=== PATIENT | female | born 1990 | race Hispanic/Latino ===

== ENCOUNTER 2022-09-28 11:10 | Inpatient (IN) | payer OTHER ==
--- OUTSIDE RECORDS SUMMARY | 2022-09-28 11:16 | XMS REPORT | Continuity of Care Document ---
:1990 Author Organization [facility] t Address [address] [place] [address] [place] [address] Care Team Providers Name Role Phone Pcp, Patient Does Not Have A Primary Care Physician [phone] SKYLER SINGER Attending Clinician Unavailable MILA SOLORIO Attending Clinician Unavailable Mila Solorio MD Attending Clinician Doctor Unassigned, [place] Attending Clinician Unavailable Pcp, Patient Does Not Have A Attending Clinician [phone] CATHERINE KEITA Attending Clinician Unavailable Catherine Keita MD Attending Clinician Amairani Devries Attending Clinician Rajinder Palomares Attending Clinician SKYLER SINGER Admitting Clinician Unavailable CATHERINE KEITA Admitting Clinician Unavailable Rajinder Palomares Admitting Clinician Payers Payer Name Policy Type Policy Number Effective Date Expiration Date [facility] [id number] 2021 HEALTH CHOICE 00:00:00 [facility] [id number] 2016 [facility] Choice - 00:00:00 [facility] [id number] 2016 [facility] Choice - 00:00:00 [facility] [id number] 2016 [facility] Choice - 00:00:00 [facility] Problems Condition Condition Condition Status Onset Resolution Last Treating Co mments Source Name Details Category Date Date Treatment Clinician Date Morbid Morbid Disease Active Univers obesity obesity 1-27 [place] of with body [place] index mass index 00 [place] dical of of Branch 40.0-49.9 40.0-49.9 PAIN IN PAIN IN Diagnosis Active 2012-082013-09-18 Memoria UNDERARM UNDERARM 09-01 13:04:00 l Active 00:00: [place] 07/02/2013 00 [facility] UMBILICAL UMBILICAL Diagnosis Active 2016-09-30 Memoria HERNIA HERNIA 08:16:00 l WITHOUT WITHOUT De[place] OBSTRUCTIO OBSTRUCTIO N OR N OR GANGRENE GANGRENE Active [facility] Calculus Calculus Problem Active 2021-06-12 Memoria in biliary in biliary 22:24:03 l tract tract [place] (disorder) (disorder) Active Problem 06/12/[facility] Gastritis Gastritis Problem Active 2021-06-12 Memoria caused by caused by 22:24:03 l Helicobact Helicobact He rmann er pylori er pylori (disorder) (disorder) Active Problem 06/12/2021 [facility] Steatosis Steatosis Problem Active 2021-06-12 Memoria of liver of liver 22:24:03 l (disorder) (disorder) He rmann Active Problem 06/12/2021 [facility] [id number] Cystitis Problem Active Sprin g [facility] Dysuria Dysuria Problem Active [facility] [id number] Alopecia Problem Active Sprin g [facility] [id number] Tension Problem Active Sprin g headache [facility] [id number] Problem Active Spr ing test Branch negative [facility] Allergies, Adverse Reactions, Alerts Allergy Allergy Status Severity Reaction(s) Onset Inactive Treating Comm ents Source Name Type Date Date Clinician No Known DA Active U [facility] Allergie 04-04 [place] [facility] 00:00: Health 00 are Beggs NO KNOWN Drug Active Univers ALLERGIE Class ity of [facility] [place] [facility] [place] Social History Social Habit Start Date Stop Date Quantity Comments Source ASSERTION 2022-01-11 [facility] 00:00:00 [facility] History of Never Smoker [facility] Tobacco Use [facility] Sex Assigned At [facility] Exposure to 2022-09-15 2022-09-25 Not sure [facility] [place] [facility]-CoV-2 00:00:00 09:25:00 [facility] (event) [place] Tobacco use and 2022-09-25 2022-09-25 Smokeless tobacco Un iversity of exposure 00:00:00 00:00:00 non-user [facility] Alcohol intake 2022-09-25 2022-09-25 Ex-drinker [facility] 00:00:00 00:00:00 (finding) [facility] Social History 2021-06-06 2021-06-06 [facility] 14:53:37 14:53:37 Smoking Status Start Date Stop Date Source Tobacco smoking consumption [facility] Never smoked tobacco [facility] Medications Ordered Filled Start Stop Current Ordering Indication Dosage Frequency Signature Comments Components Source Medication Medication Date Date Medication? Clinician (SIG) Name Name VITAFOL Yes 1{capsu Take 1 Unive rs ULTRA 29 mg 1-08 le} capsule by it y of iron- 1 00:00: mouth [place] mg-200 mg 00 daily. Medical [facility] VITAFOL Yes 1{capsu Take 1 Unive rs ULTRA 29 mg 1-08 le} capsule by it y of iron- 1 00:00: mouth [place] mg-200 mg 00 daily. Medical [facility] azithromyci Yes [id number] 250mg Take 1 Univers n 5-23 tablet by ity of (ZITHROMAX 00:00: mouth [place] Z-REAGAN) 250 00 SEE-INSTRU Med ical mg tablet CTIONS. Branch Take 500 mg day 1, then 250 mg days 2 to 5. methylPREDN Yes [id number] Take by Univers ISolone 4 5-23 mouth ity of mg tablets 00:00: [place]-INSTRU [place] 00 CTIONS. Medical follow Branch package directions montelukast 2022-0 Yes [id number] 10mg Take 1 Univers 10 mg 5-23 tablet by ity of tablet 00:00: mouth [place] 00 every 24 Medical (twenty-fo Branch ur) hours as needed (symptoms) . loratadine 2021-0 Yes [id number] 10mg Take 1 U nivers 10 mg 5-23 tablet by ity of tablet 00:00: mouth [place] 00 daily. Medical Branch benzonatate 2021-0 Yes [id number] 100mg Take 1 Univers 100 mg 5-23 capsule by ity of capsule 00:00: mouth 3 [place] 00 (three) Medical times Branch daily as needed for Cough. azithromyci 2021-0 Yes [id number] 250mg Take 1 Univers n 5-23 tablet by ity of (ZITHROMAX 00:00: mouth [place] Z-REAGAN) 250 00 SEE-INSTRU Med ical mg tablet CTIONS. Branch Take 500 mg day 1, then 250 mg days 2 to 5. methylPREDN 2021-0 Yes [id number] Take by Univers ISolone 4 01-19 mouth ity of mg tablets 00:00: SEE-INSTRU [place] CTIONS. Medical follow Branch package directions montelukast 2021-0 Yes [id number] 10mg Take 1 Univers 10 mg 5-23 tablet by ity of tablet 00:00: mouth [place] 00 every 24 Medical (twenty-fo Branch ur) hours as needed (symptoms) . loratadine 2021-0 Yes [id number] 10mg Take 1 U nivers 10 mg 5-23 tablet by ity of tablet 00:00: mouth [place] 00 daily. Medical Branch benzonatate 2021-0 Yes [id number] 100mg Take 1 Univers 100 mg 5-23 capsule by ity of capsule 00:00: mouth 3 [place] 00 (three) Medical times Branch daily as needed for Cough. azithromyci 2021-0 2022- No [id number] 250mg Take 1 Univers n 5-23 - tablet by ity of (ZITHROMAX 00:00: 00:00 mouth [place] Z-REAGAN) 250 00 :00 SEE-INSTRU Med ical mg tablet CTIONS. Branch Take 500 mg day 1, then 250 mg days 2 to 5. methylPREDN 2021-0 2022- No [id number] Take by Univers ISolone 4 5-23 09-27 mouth ity of mg tablets 00:00: 00:00 SEE-INSTRU [place] 00 :00 CTIONS. Medical follow Branch package directions montelukast 2022- No [id number] 10mg Take 1 Univers 10 mg 5-09-27 tablet by ity of tablet 00:00: 00:00 mouth [place] 00 :00 every 24 Medical (twenty-fo Branch ur) hours as needed (symptoms) . loratadine 2022- No [id number] 10mg Take 1 Univers 10 mg 5-09-27 tablet by ity of tablet 00:00: 00:00 mouth [place] 00 :00 daily. Medical Branch benzonatate 2022- No [id number] 100mg Take 1 Univers 100 mg 5-09-27 capsule by ity of capsule 00:00: 00:00 mouth 3 [place] 00 :00 (three) Medical times Branch daily as needed for Cough. Famotidine 2020-08 Yes 20 mg = 1 Me moria 20 MG Oral 0-08 tab, PO, l Tablet 15:37: BID, # 180 Mary nn [Pepcid] 00 tab, 0 Refill(s), Pharmacy: [facility] #[id number], 157.48, cm, 06/06/21 10:14:00 CDT, Height, 81.023, kg, 06/06/21 10:14:00 CDT, Weight Famotidine 2020-08 Yes 20 mg = 1 Me moria 20 MG Oral 0-08 tab, PO, l Tablet 15:37: BID, # 180 Mary nn [Pepcid] 00 tab, 0 Refill(s), Pharmacy: [facility] #[id number], 157.48, cm, 06/06/21 10:14:00 CDT, Height, 81.023, kg, 06/06/21 10:14:00 CDT, Weight Flagyl 500 Flagyl 500 No 1{table BID Flagyl 500 MG MG 1-09 t} MG 00:00: 00 Flagyl 500 Flagyl 500 No 1{table BID Flagyl 500 MG MG 1-09 t} MG 00:00: 00 Flagyl 500 Flagyl 500 2018- No 1{table BID Flagyl 500 MG MG 1-09 t} MG 00:00: 00 Phenergan No Notes: Do Mem oria 2- not give l 18:30: IV push. (Same as: Phenergan) Phenergan No Notes: Do Mem oria 2- not give l 18:30: IV push. (Same as: Phenergan) glycopyrrol No Route: IV, Memoria ate (ANES) 2 Drug form: l 18:01: INJ, ONCE, Stop date: 09/30/16 12:01:00 MAT GAUGER neostigmine 2016- No Route: IV, Memoria (ANES) 2 Drug form: l 18:01: INJ, ONCE, Stop date: 09/30/16 12:01:00 MAT GAUGER ondansetron No Route: IV, Memoria (ANES) 09-30 Drug form: l 18:01: INJ, ONCE, Stop date: 09/30/16 12:01:00 MAT GAUGER glycopyrrol No Route: IV, Memoria ate (ANES) 09-30 Drug form: l 18:01: INJ, ONCE, Stop date: 09/30/16 12:01:00 MAT GAUGER neostigmine No Route: IV, Memoria (ANES) 2 Drug form: l 18:01: INJ, ONCE, Stop date: 09/30/16 12:01:00 MAT GAUGER ondansetron No Route: IV, Memoria (ANES) 2 Drug form: l 18:01: INJ, ONCE, Stop date: 09/30/16 12:01:00 MAT GAUGER POLYETHYLEN 2016- Yes 17 gm, PO, Memoria E GLYCOL 2-01 Daily, X l [id number] 17:54: 15 day, # [place] MG/ML Oral 00 255 gm, 0 Solution Refill(s) [Miralax] POLYETHYLEN 2017-0 Yes 17 gm, PO, Memoria E GLYCOL 2-01 Daily, X l [id number] 142 17:54: 15 day, # [place] MG/ML Oral 00 255 gm, 0 Solution Refill(s) [Miralax] morphine No Route: IV, Mem oria Sulfate 2 Drug form: l (ANES) 17:39: INJ, ONCE, Mary nn Stop date: 09/30/16 11:39:00 MAT GAUGER morphine 2017-0 No Route: IV, Mem oria Sulfate 09-30 Drug form: l (ANES) 17:39: INJ, ONCE, Mary nn Stop date: 09/30/16 11:39:00 MAT GAUGER dexamethaso 2017-0 No Route: IV, Memoria ne (ANES) 2 Drug form: l 17:19: INJ, ONCE, Dere[place] 00 Stop date: 09/30/16 11:19:00 MAT GAUGER dexamethaso 2016-0 No Route: IV, Memoria ne (ANES) 2 Drug form: l 17:19: INJ, ONCE, [place] 00 Stop date: 09/30/16 11:19:00 MAT GAUGER ceFAZolin 2016-0 No Route: IV, Me moria (ANES) 09-30 Drug form: l 17:14: INJ, ONCE, Stop date: 09/30/16 11:14:00 MAT GAUGER acetaminoph 2016-0 No Route: IV, Memoria en (ANES) 09-30 Drug form: l 17:14: INJ, ONCE, Stop date: 09/30/16 11:14:00 MAT GAUGER rocuronium 2016-0 No Route: IV, M emoria (ANES) 09-30 Drug form: l 17:14: INJ, ONCE, Stop date: 09/30/16 11:14:00 MAT GAUGER propofol 2017-0 No Route: IV, Mem oria (ANES) 2 Drug form: l 17:14: INJ, ONCE, Stop date: 09/30/16 11:14:00 MAT GAUGER fentaNYL 2017-0 No Route: IV, Mem oria (ANES) 2 Drug form: l 17:14: INJ, ONCE, Stop date: 09/30/16 11:14:00 MAT GAUGER midazolam 2017-0 No Route: IV, Me moria (ANES) 2 Drug form: l 17:14: SOLN, Dereje 00 ONCE, Stop date: 09/30/16 11:14:00 MAT GAUGER ceFAZolin 2017-0 No Route: IV, Me moria (ANES) 2 Drug form: l 17:14: INJ, ONCE, Stop date: 09/30/16 11:14:00 MAT GAUGER acetaminoph No Route: IV, Memoria en (ANES) 09-30 Drug form: l 17:14: INJ, ONCE, Dere[place] 00 Stop date: 09/30/16 11:14:00 MAT GAUGER rocuronium No Route: IV, M emoria (ANES) 09-30 Drug form: l 17:14: INJ, ONCE, Stop date: 09/30/16 11:14:00 MAT GAUGER propofol No Route: IV, Mem oria (ANES) 09-30 Drug form: l 17:14: INJ, ONCE, Stop date: 09/30/16 11:14:00 MAT GAUGER fentaNYL No Route: IV, Mem oria (ANES) 09-30 Drug form: l 17:14: INJ, ONCE, Stop date: 09/30/16 11:14:00 MAT GAUGER midazolam No Route: IV, Me moria (ANES) 09-30 Drug form: l 17:14: SOLN, 00 ONCE, Stop date: 09/30/16 11:14:00 MAT GAUGER Flumazenil No Notes: Memor ia 09-30 (Same as: l 16:43: Romazicon) Diphenhydra No Notes: Maykel kathia mine 09-30 (Same as: l 16:43: Benadryl) Hydromorpho No Notes: Maykel kathia ne 09-30 Same as l 16:43: Dilaudid Morphine No 2 mg, 1 Memori a 2-01 mL, Route: l 16:43: IVP, Drug form: SOLN, Q5Min, Dosing Weight 59.091, kg, PRN Pain Score 4-6, Start date: 09/30/16 10:43:00 MAT GAUGER, Duration: 5 doses or times, Stop date: Limited # of times Naloxone No Notes: Memoria 2 Same as l 16:43: Narcan Ondansetron No Notes: Maykel kathia 2- (Same as: l 16:43: Zofran) MEDICATION WASTE Product Size: 4 mg Product Wasted: _0__ mg Flumazenil No Notes: Memor ia 09-30 (Same as: l 16:43: Romazicon) Diphenhydra No Notes: Maykel kathia mine 09-30 (Same as: l 16:43: Benadryl) Hydromorpho No Notes: Maykel katiha ne 09-30 Same as l 16:43: Dilaudid Morphine No 2 mg, 1 Memori a 2- mL, Route: l 16:43: IVP, Drug form: SOLN, Q5Min, Dosing Weight 59.091, kg, PRN Pain Score 4-6, Start date: 09/30/16 10:43:00 MAT GAUGER, Duration: 5 doses or times, Stop date: Limited # of times Naloxone No Notes: Memoria 09-30 Same as l 16:43: Narcan Ondansetron No Notes: Maykel kathia 09-30 (Same as: l 16:43: Zofran) MEDICATION WASTE Product Size: 4 mg Product Wasted: _0__ mg LR 1000 mL No Route: IV, M emoria INJ (ANES) 09-30 Total l 16:20: Volume: Dereje 00 1,000, Start date: 09/30/16 10:20:00 MAT GAUGER, Stop date: 09/30/16 11:20:00 MAT GAUGER LR 1000 mL No Route: IV, M emoria INJ (ANES) 09-30 Total l 16:20: Volume: [place] 00 1,000, Start date: 09/30/16 10:20:00 MAT GAUGER, Stop date: 09/30/16 11:20:00 MAT GAUGER Lidocaine No Notes: Memori a 2-01 Ingredient l 15:00: s: 2 ml lidocaine 1% inj , 0.2ml sodium bicarbonat e 8.4% inj total volume = 2.2ml Refrigerat e: 14 days Room temp: 7 days Lidocaine No Notes: Memori a 2- Ingredient l 15:00: s: 2 ml [place] 00 lidocaine 1% inj , 0.2ml sodium bicarbonat e 8.4% inj total volume = 2.2ml Refrigerat e: 14 days Room temp: 7 days Calcium No 1,000 mL, Memor ia Chloride 09-30 Rate: 25 l 0.0014 14:32: ml/hr, Dereje MEQ/ML / 00 Infuse Potassium over: 40 Chloride hr, Route: 0.004 IV, Dosing MEQ/ML / Weight Sodium 59.091 kg, Chloride Total 0.103 Volume: MEQ/ML / 1,000, Sodium Start Lactate date: 0.028 17 MEQ/ML 8:32:00 Injectable MAT GAUGER, Solution Duration: 30 day, Stop date: 10/30/16 8:31:00 MAT GAUGER Calcium No 1,000 mL, Memor ia Chloride 09-30 Rate: 25 l 0.0014 14:32: ml/hr, [place] MEQ/ML / 00 Infuse Potassium over: 40 Chloride hr, Route: 0.004 IV, Dosing MEQ/ML / Weight Sodium 59.091 kg, Chloride Total 0.103 Volume: MEQ/ML / 1,000, Sodium Start Lactate date: 0.028 09/30/16 MEQ/ML 8:32:00 Injectable MAT GAUGER, Solution Duration: 30 day, Stop date: 10/30/16 8:31:00 MAT GAUGER ceFAZolin No Notes: Memori a 2- Same as: l 12:00: Ancef Sodium No 25 mL, Memoria Chloride 09-30 Route: IV, l 0.9% IV 12:00: Start date: 09/30/16 6:00:00 MAT GAUGER, Duration: 30 day, Stop date: 10/30/16 5:59:00 MAT GAUGER, PRN Line Flush Ofirmev No Notes: Memoria 2-01 Infuse l 12:00: over 15 minutes Do not exceed 4gm/day of acetaminop hen MEDICATION WASTE Product Size: 1000 mg Product Wasted: _0__ mg BD Normal No Notes: Memori a Saline 2-01 (Same as: l Flush 12:00: BD Posiflush) scopolamine No Notes: Maykel kathia 2-01 Change l 12:00: patch Dereje 00 every 72 hours (Same as: Transderm- Scop) ceFAZolin No Notes: Memori a 2- Same as: l 12:00: Ancef Dereje Sodium No 25 mL, Memoria Chloride 2- Route: IV, l 0.9% IV 12:00: Start Dereje 00 date: 09/30/16 6:00:00 MAT GAUGER, Duration: 30 day, Stop date: 10/30/16 5:59:00 MAT GAUGER, PRN Line Flush Ofirmev No Notes: Memoria 2- Infuse l 12:00: over 15 [place] 00 minutes Do not exceed 4gm/day of acetaminop hen MEDICATION WASTE Product Size: 1000 mg Product Wasted: _0__ mg BD Normal No Notes: Memori a Saline 2- (Same as: l Flush 12:00: BD [place] Posiflush) scopolamine No Notes: Maykel kathia 2-01 Change l 12:00: patch [place] 00 every 72 hours (Same as: Transderm- Scop) Levonorgest Levonorgest No Levonorges rel-Eth rel-Eth trel-Eth Estrad & FA Estrad & FA Estrad & 0.1-20 & 1 0.1-20 & 1 FA 0.1-20 MG-MCG &MG MG-MCG &MG & 1 MG-MCG &MG Flagyl 500 Flagyl 500 No 1{table BID Flagyl 500 MG MG t} MG Aviane Aviane No Aviane 0.1-20 0.1-20 0.1-20 MG-MCG MG-MCG MG-MCG Mirena 20 Mirena 20 No Mirena 20 MCG/24HR MCG/24HR MCG/24HR Levonorgest Levonorgest No Levonorges rel-Eth rel-Eth trel-Eth Estrad & FA Estrad & FA Estrad & 0.1-20 & 1 0.1-20 & 1 FA 0.1-20 MG-MCG &MG MG-MCG &MG & 1 MG-MCG &MG Flagyl 500 Flagyl 500 No 1{table BID Flagyl 500 MG MG t} MG Aviane Aviane No Aviane 0.1-20 0.1-20 0.1-20 MG-MCG MG-MCG MG-MCG Mirena 20 Mirena 20 No Mirena 20 MCG/24HR MCG/24HR MCG/24HR Levonorgest Levonorgest No Levonorges rel-Eth rel-Eth trel-Eth Estrad & FA Estrad & FA Estrad & 0.1-20 & 1 0.1-20 & 1 FA 0.1-20 MG-MCG &MG MG-MCG &MG & 1 MG-MCG &MG Flagyl 500 Flagyl 500 No 1{table BID Flagyl 500 MG MG t} MG Aviane Aviane No Aviane 0.1-20 0.1-20 0.1-20 MG-MCG MG-MCG MG-MCG Mirena 20 Mirena 20 No Mirena 20 MCG/24HR MCG/24HR MCG/24HR Immunizations Ordered Immunization Filled Immunization Date Status Commen ts Source Name Name Tdap (Govt) Tdap (Govt) 2015-06-20 Completed [facility] 09:49:00 [facility] Tdap (Govt) Tdap (Govt) 2015-06-20 Completed [facility] h 09:49:00 [facility] Tdap (Govt) Tdap (Govt) 2015-06-20 Completed [facility] h 09:49:00 [facility] Influenza 3+ years Influenza 3+ years 2015-06-20 Completed [place] (Govt) (Govt) 09:47:00 [facility] Influenza 3+ years Influenza 3+ years 2015-06-20 Completed [place] (Govt) (Govt) 09:47:00 [facility] Influenza 3+ years Influenza 3+ years 2015-06-20 Completed [place] (Govt) (Govt) 09:47:00 [facility] Vital Signs Vital Name Observation Time Observation Value Comments Source Systolic blood 2022-09-25 16:03:00 111 mm[Hg] [facility]iver [facility] Diastolic blood 2022-09-25 16:03:00 69 mm[facility]Hg] [facility] 2022-09-25 16:03:00 67 /min [facility] Body temperature 2022-09-25 16:03:00 36.89 Nancy Univ ersity of [facility] Respiratory rate 2022-09-25 16:03:00 18 /min [facility] Body height 2022-09-25 16:03:00 157.5 cm Universi ty of [facility] Body weight 2022-09-25 16:03:00 99.791 kg Universi [facility] BMI 2022-09-25 16:03:00 40.24 [facility] 2022-01-19 13:28:00 121 mm[Hg] [facility]iver [facility] Diastolic blood 2022-01-19 13:28:00 105 mm[Hg] Unive [facility] Body temperature 2022-01-19 13:28:00 36.56 Nancy [facility] Res[facility] rate 2022-01-19 13:28:00 18 /min [facility] Body weight 2022-01-19 13:28:00 72.576 kg [facility] Oxygen saturation in 2022-01-19 13:28:00 99 /min [facility] Arterial blood by [facility] Pulse oximetry Branch temperature 2017-10-08 15:40:00 98.9 [degF] [facility] respiratory rate 2017-10-08 15:40:00 20 /min [facility] height 2017-10-08 15:40:00 62 [in_i] [facility] weight 2017-10-08 15:40:00 137.4 [lb_av] [facility] bmi 2017-10-08 15:40:00 25.13 kg/m2 [facility] temperature 2017-07-20 15:00:00 97.8 [degF] [facility] respiratory rate 2017-07-20 15:00:00 20 /min [facility] height 2017-07-20 15:00:00 62 [in_i] [facility] weight 2017-07-20 15:00:00 135.2 [lb_av] [facility] bmi 2017-07-20 15:00:00 24.73 kg/m2 [facility] Systolic (mm Hg) 2021-06-06 14:50:00 Maykel rial [place]re[place] Diastolic (mm Hg) 2021-06-06 14:50:00 Mem orial [place] Heart Rate 2021-06-06 14:50:00 [facility] [place] Respitory Rate 2021-06-06 14:50:00 Memori al [place] Height 2021-06-06 14:50:00 157.48 cm Memorial [place] Weight 2021-06-06 14:50:00 Memorial [place] BMI Calculated 2021-06-06 14:50:00 Memori al [place] Systolic (mm Hg) 2016-09-30 21:59:00 Maykel rial [place] Diastolic (mm Hg) 2016-09-30 21:59:00 Mem orial [place] Heart Rate 2016-09-30 21:59:00 Memorial [place] Respitory Rate 2016-09-30 21:59:00 Memori al [place] Respitory Rate 2016-09-30 20:58:00 Memori al [place] Systolic (mm Hg) 2016-09-30 20:58:00 Maykel rial [place] Diastolic (mm Hg) 2016-09-30 20:58:00 Mem orial [place] Respitory Rate 2016-09-30 20:51:00 Memori al [place] Systolic (mm Hg) 2016-09-30 20:48:00 Maykel rial [place] Diastolic (mm Hg) 2016-09-30 20:48:00 Mem orial [place] Heart Rate 2016-09-30 20:00:00 Memorial [place] Heart Rate 2016-09-30 19:30:00 [facility] [place] Temperature Oral (F) 2016-09-30 15:13:00 98.8 F [facility] [place] Weight 2016-09-28 20:19:00 [facility] [place] BMI Calculated 2016-09-28 20:19:00 Memori al [place] Height 2016-09-28 20:19:00 157.48 cm [facility] [place] Procedures Procedure Date / Time Performing Clinician Source Performed DSU PRE-OP 2022-09-25 06:01:00 Doctor Unassigned, No Angelineer [facility] CONSENT/REFUSAL FOR 2022-01-19 13:50:07 [facility], [facility] Name [facility] NOTICE OF PRIVACY 2022-01-19 13:49:56 Doctor Unassigned, No Univ [facility] PRACTICES Name [facility] XR CHEST 1 VW 2022-01-19 13:45:41 Catherine Keita [place] o f [facility] RAPID INFLUENZA A/B 2022-01-19 13:32:00 [facility] COVID-19 (ID NOW RAPID 2022-01-19 13:32:00 Catherine Keita [facility] TESTING) [facility] PAP smear preparation 2020-01-27 05:00:00 Bill Graham Hernia repair 2015-08-30 00:00:00 [facility] Miscellaneous operations Masha Reyez Encounters Start End Encounter Admission Attending Care Care Encounter Source Date/Time Date/Time Type Type Clinicians Facility Department ID 2019-11-03 Inpatient LUCRECIA MIK [facility] [id number] W 06:48:00 SKYLER 2022-09-29 2022-09-29 Outpatient R ADUM, [facility] [id number] Univers 09:15:00 09:15:00 MILA estefaniaagnieszka [facility] 2022-09-25 2022-09-25 Outpatient R ADUM, [facility] [id number] Univers 10:00:00 10:55:57 MILA macagnieszka [facility] 2022-09-25 2022-09-25 Initial Adum, [facility] [id number] Univers 10:00:00 10:55:57 Mila GARCIA [id number] ity of [place] 4[place]7.2.686 [place] [id number] Sd dical NAL [address] [place] BUILDING 2022-09-25 2022-09-25 Orders Doctor EVARISTO [id number] Univers 00:00:00 00:00:00 Only Unassigned, SHAYNA [id number] ity of [place] [facility] 4.2.7.2.686 [place] as [id number] [address] 2022-09-24 2022-09-24 Telephone Pcp, [facility] [id number] Univers 00:00:00 00:00:00 Patient JOSE [id number] i ty of Does Not [facility] [id number] [place] as Have A PROFESSIO [phone] Sd dical [address] 2022-01-19 2022-01-19 Emergency X [facility] ERT [id number] Univers 08:36:00 09:55:00 CATHERINE itagnieszka of [facility] 2022-01-19 2022-01-19 Emergency [facility] [id number] Univers 08:36:00 09:55:00 Catherine GARCIA [id number] i ty of [place] 4[place]2.7.2.686 [place] [facility] [id number] [address] 2021-06-09 2021-06-10 Between nullFlavo [facility] [id number] Memoria 18:38:02 18:38:02 Visit r Primary 02 l [facility] 2021-06-09 2021-06-10 Between nullFlavo [facility] [id number] Memoria 18:38:02 18:38:02 Visit r Primary 02 l [facility] 2021-06-09 2021-06-10 Outpatient [facility] [id number] 13:38:02 13:38:02 02 2021-06-06 2021-06-07 Outpatient nullFlavo [facility] [id number] Memoria 15:00:00 04:59:59 r Primary 00 [facility] 2021-06-06 2021-06-07 Outpatient nullFlavo [facility] [id number] Memoria 15:00:00 04:59:59 r Primary 00 [facility] 2021-06-06 2021-06-06 Outpatient Kayce Oliverjodie [facility] [id number] 10:00:00 23:59:59 00 2021-06-06 2021-06-06 Outpatient [facility]IE [facility] [id number] Memoria 10:00:00 10:00:00 00 dickson Reyez 2020-04-17 2020-04-17 Outpatient [facility] PDPFEBT [facility] 00:00:00 00:00:00 [id number] 2019-02-13 2019-02-13 Emergency E MHCY MHCY [id number] MHCY 12:56:00 12:56:00 2017-10-14 2017-10-14 (TEL) [facility] [id number] Sp ring 00:00:00 00:00:00 Branch [facility] 2017-10-08 2017-10-08 (ESTPT) [facility] [id number] Sp ring 00:00:00 00:00:00 [facility] Patient [facility] 2017-07-20 2017-07-20 (Routine) [facility] [id number] Spring 00:00:00 00:00:00 Routine Branch visit [facility] 2016-09-30 2016-09-30 Day [facility] [id number] Memoria 14:06:09 22:45:00 Surgery [facility] 00 [facility] 2016-09-30 2016-09-30 Day [facility] [id number] Memoria 14:06:09 22:45:00 Surgery [facility] 00 [facility] 2016-09-30 2016-09-30 Outpatient Walker, MH9 9 [id number] 575 08:06:09 16:45:00 Peter 00 Abdon 2013-07-02 2013-07-02 Emergency nullFlavo [id number] Memoria 12:02:00 16:23:00 r Doran 00 dickson Reyez 2013-07-02 2013-07-02 Emergency nullFlavo [id number] Memoria 12:02:00 16:23:00 r Doran 00 Dereje Results Test Description Test Time Test Comments Results Result Comments Source CHEM PANEL 2021-06-06 16:16:00 Test Item Value Reference Range Interpretation Comme nts A/G Ratio (test code = A/G Ratio) 1.6 1.0-2.5 [facility] [id number] 16:16:00 Test Item Value Reference Range Interpretation Comments Bili Total (test code = Bili Total) 0.3 0.2-1.2 [facility] [id number] 16:16:00 Test Item Value Reference Range Interpretation Comments Alk Phos (test code = Alk Phos) 70 31-125 [facility]2021-10-08 16:16:00 Test Item Value Reference Range Interpretation Comments ASPARTATE TRANSAMINASE (test code = 24 10-30 ASPARTATE TRANSAMINASE) [facility]2021-10-08 16:16:00 Test Item Value Reference Range Interpretation Comments ALANINE AMINOTRANSFERASE (test code = 39 6-29 ALANINE AMINOTRANSFERASE) [facility] 16:16:00 Test Item Value Reference Range Interpretation Comments WBC X 10x3 (test code = WBC X 10x3) 6.8 3.8-10.8 [facility]LlytfelQIXSLZWIKS5630-39-72 16:16:00 Test Item Value Reference Range Interpretation Comments RBC X 10x6 (test code = RBC X 10x6) 4.38 3.80-5.10 [facility]IndmjcwQYHDSOMVVW4318-86-11 16:16:00 Test Item Value Reference Range Interpretation Comments Hgb (test code = Hgb) 12.6 11.7-15.5 [facility]XkqauyxLMLBFGKPPI4698-62-58 16:16:00 Test Item Value Reference Range Interpretation Comments Hct (test code = Hct) 37.2 35.0-45.0 [facility] CenterYxcasrnESVBQMTFUB1789-87-43 16:16:00 Test Item Value Reference Range Interpretation Comments MCV (test code = MCV) 84.9 80.0-100.0 [facility]GtgppgwPLNHAKAEYB0490-05-08 16:16:00 Test Item Value Reference Range Interpretation Comments MCH (test code = MCH) 28.8 pg 27.0-33.0 [facility] CenterAtzojnqOEOFAUKFPA4692-24-04 16:16:00 Test Item Value Reference Range Interpretation Comments MCHC (test code = MCHC) 33.9 32.0-36.0 [facility] CenterRwvjqkiRXSGAXCPPF3543-51-93 16:16:00 Test Item Value Reference Range Interpretation Comments RDW (test code = RDW) 13.0 11.0-15.0 [facility] CenterFmvcfxgCETKYNAVIX5201-59-49 16:16:00 Test Item Value Reference Range Interpretation Comments Platelet (test code = Platelet) 268 140-400 [facility] CenterMvjrtslQRTSKCORAG8050-84-62 16:16:00 Test Item Value Reference Range Interpretation Comments MPV (test code = MPV) 10.0 7.5-12.5 [facility]UiljbcdWXTQEANATM4675-68-39 16:16:00 Test Item Value Reference Range Interpretation Comments H pylori Breath Test (test code = H DETECTED pylori Breath Test) [facility] [id number] 16:16:00 Test Item Value Reference Range Interpretation Comments Hgb A1C (test code = Hgb A1C) 5.3 [facility] [id number] 16:16:00 Test Item Value Reference Range Interpretation Comments Glucose Lvl (test code = Glucose Lvl) 80 65-99 [facility]2021-10-08 16:16:00 Test Item Value Reference Range Interpretation Comments BUN (test code = BUN) 12 7-25 [place] [id number] 16:16:00 Test Item Value Reference Range Interpretation Comments Creatinine Lvl (test code = Creatinine 0.52 0.50-1.10 Lvl) [facility]2021-10-08 16:16:00 Test Item Value Reference Range Interpretation Comments eGFR NON-AFR. FRENCH (test code = 128 eGFR NON-AFR. FRENCH) [facility]2021-10-08 16:16:00 Test Item Value Reference Range Interpretation Comments eGFR (test code = eGFR 149 ) [facility]2021-10-08 16:16:00 Test Item Value Reference Range Interpretation Comments B/C Ratio (test code = B/C NOT APPLICABLE 22 Ratio) [facility]2021-10-08 16:16:00 Test Item Value Reference Range Interpretation Comments Sodium Lvl (test code = Sodium Lvl) 136 135-146 [facility]2021-10-08 16:16:00 Test Item Value Reference Range Interpretation Comments Potassium Lvl (test code = Potassium 4.1 3.5-5.3 Lvl) [facility]2021-10-08 16:16:00 Test Item Value Reference Range Interpretation Comments Chloride Lvl (test code = Chloride Lvl) 103 98-110 [facility]2021-10-08 16:16:00 Test Item Value Reference Range Interpretation Comments CO2 (test code = CO2) 26 20-32 [place] 677241-10-08 16:16:00 Test Item Value Reference Range Interpretation Comments Calcium Lvl (test code = Calcium Lvl) 9.2 8.6-10.2 [place] 677241-10-08 16:16:00 Test Item Value Reference Range Interpretation Comments Total Protein (test code = Total 6.7 6.1-8.1 Protein) [place] 677241-10-08 16:16:00 Test Item Value Reference Range Interpretation Comments Albumin Lvl (test code = Albumin Lvl) 4.1 3.6-5.1 [place] 677241-10-08 16:16:00 Test Item Value Reference Range Interpretation Comments Globulin (test code = Globulin) 2.6 1.9-3.7 [facility]2021-10-08 16:16:00 Test Item Value Reference Range Interpretation Comments A/G Ratio (test code = A/G Ratio) 1.6 1.0-2.5 [place] 677241-10-08 16:16:00 Test Item Value Reference Range Interpretation Comments Bili Total (test code = Bili Total) 0.3 0.2-1.2 [place] 677241-10-08 16:16:00 Test Item Value Reference Range Interpretation Comments Alk Phos (test code = Alk Phos) 70 31-125 [facility]2021-10-08 16:16:00 Test Item Value Reference Range Interpretation Comments ASPARTATE TRANSAMINASE (test code = 24 10-30 ASPARTATE TRANSAMINASE) [facility]2021-10-08 16:16:00 Test Item Value Reference Range Interpretation Comments ALANINE AMINOTRANSFERASE (test code = 39 6-29 ALANINE AMINOTRANSFERASE) [place] 474741-10-08 16:16:00 Test Item Value Reference Range Interpretation Comments WBC X 10x3 (test code = WBC X 10x3) 6.8 3.8-10.8 [place] 474741-10-08 16:16:00 Test Item Value Reference Range Interpretation Comments RBC X 10x6 (test code = RBC X 10x6) 4.38 3.80-5.10 [place] 474741-10-08 16:16:00 Test Item Value Reference Range Interpretation Comments Hgb (test code = Hgb) 12.6 11.7-15.5 [place] 474741-10-08 16:16:00 Test Item Value Reference Range Interpretation Comments Hct (test code = Hct) 37.2 35.0-45.0 [facility]XC8289[facility]32-83 16:16:00 Test Item Value Reference Range Interpretation Comments MCV (test code = MCV) 84.9 80.0-100.0 [facility]YldnkvtWKRAMDEOGG9477-15-98 16:16:00 Test Item Value Reference Range Interpretation Comments MCH (test code = MCH) 28.8 pg 27.0-33.0 [facility]BBZA7552-88-26 16:16:00 Test Item Value Reference Range Interpretation Comments MCHC (test code = MCHC) 33.9 32.0-36.0 [facility]HvwjknfYOMIPEBJEC6757-61-02 16:16:00 Test Item Value Reference Range Interpretation Comments RDW (test code = RDW) 13.0 11.0-15.0 [facility] HospitalKeshfmfBSXITIOMVH4349-07-27 16:16:00 Test Item Value Reference Range Interpretation Comments Platelet (test code = Platelet) 268 140-400 [facility] HospitalFfujfruIGKYHXEROE8000-71-20 16:16:00 Test Item Value Reference Range Interpretation Comments MPV (test code = MPV) 10.0 7.5-12.5 [facility]ujtgbkSODHGHFXKY5669-08-75 16:16:00 Test Item Value Reference Range Interpretation Comments H pylori Breath Test (test code = H DETECTED pylori Breath Test) [facility] [id number] 16:16:00 Test Item Value Reference Range Interpretation Comments Hgb A1C (test code = Hgb A1C) 5.3 [facility] [id number] 16:16:00 Test Item Value Reference Range Interpretation Comments Glucose Lvl (test code = Glucose Lvl) 80 65-99 [facility] [id number] 16:16:00 Test Item Value Reference Range Interpretation Comments BUN (test code = BUN) 12 7-25 [facility] [id number] 16:16:00 Test Item Value Reference Range Interpretation Comments Creatinine Lvl (test code = Creatinine 0.52 0.50-1.10 Lvl) [facility] [id number] 16:16:00 Test Item Value Reference Range Interpretation Comments eGFR NON-AFR. FRENCH (test code = 128 eGFR NON-AFR. FRENCH) [facility] [id number] 16:16:00 Test Item Value Reference Range Interpretation Comments eGFR (test code = eGFR 149 ) [facility]2021-10-08 16:16:00 Test Item Value Reference Range Interpretation Comments B/C Ratio (test code = B/C NOT APPLICABLE 6-22 Ratio) [place] 677241-10-08 16:16:00 Test Item Value Reference Range Interpretation Comments Sodium Lvl (test code = Sodium Lvl) 136 135-146 [place] 677241-10-08 16:16:00 Test Item Value Reference Range Interpretation Comments Potassium Lvl (test code = Potassium 4.1 3.5-5.3 Lvl) [place] 677241-10-08 16:16:00 Test Item Value Reference Range Interpretation Comments Chloride Lvl (test code = Chloride Lvl) 103 98-110 [facility]2021-10-08 16:16:00 Test Item Value Reference Range Interpretation Comments CO2 (test code = CO2) 26 20-32 [place] 677241-10-08 16:16:00 Test Item Value Reference Range Interpretation Comments Calcium Lvl (test code = Calcium Lvl) 9.2 8.6-10.2 [facility]2021-10-08 16:16:00 Test Item Value Reference Range Interpretation Comments Total Protein (test code = Total 6.7 6.1-8.1 Protein) [facility]2021-10-08 16:16:00 Test Item Value Reference Range Interpretation Comments Albumin Lvl (test code = Albumin Lvl) 4.1 3.6-5.1 [place] 677241-10-08 16:16:00 Test Item Value Reference Range Interpretation Comments Globulin (test code = Globulin) 2.6 1.9-3.7 [facility] PREG [id number] 12:12:00Patient Name: JOANN TOBIN Unit No: [id number] EXAMS: CPT: [id number] PREG 1ST TRIMTR [id number] COMPARISON: None CLINICAL HISTORY: Abdominal pain FINDINGS: The uterus is anteflexed and measures 11.8 x 5.7 x 7.7 cm. Within the endometrial cavity, a gestational sac, yolk sac, and pole are seen. Thecrown-rump length measures 1.9 cm, equivalent to 8 weeks 3 days. heart rate is at 165 beats per minute. JM = 11/11/2019. There is a 2nd adjacent cystic structure without a pole and may represent a 2nd empty gestational sac. It measures 1.4 x 1.5 cm. The left ovary cannot be visualized. Theright ovary appears unremarkable and measures 3.2 x 2.0 x 2.1 cm. Flow is present in the right ovary. No adnexal mass or free fluid identified. IMPRESSION: Viable single intrauterine at approximately 8 weeks 3 days. No acute findings identified. A 2nd cystic structure seen adjacent to the gestational sac, possibly an empty 2nd gestational sac. Follow up OB ultrasound is recommended. at 1212 Reported and signed by: Javier Barahona MD CC: Parmjit Curiel MD Technologist: ROBERT OSMAN Probe: Trscr Dt/Tm: 04/04/2019 (1212) by:Maricarmen Orig Print D/T: S: 04/04/2019 (1215) BATCH NO: N/A Name: JOANN TOBIN FSED Phys: SHEHA. - Parmjit Curiel MD [address] : 1990 Age: 29 Sex: [place] [id number] Loc: VIKRAM Exam Date: 04/04/2019 Status: REG PH: [phone] FAX: PAGE 1 Signed Report- US ABDOMEN [id number] 11:59:00 Patient Name: JOANN TOBIN Unit No: [id number] EXAMS: CPT: [id number] [facility]BDOMEN [facility] [id number] COMPARISON: None CLINICAL HISTORY: Right upper abdominal pain FINDINGS: The liver appears echogenic suggestiveof diffuse fatty infiltration. This limits visualization of the hepatic parenchyma. No large hepaticmass identified. There is no intra or extrahepatic biliary ductal dilatation. The common bile duct measures 3 mm in diameter. The gallbladder contains multiple small calculi. There is no gallbladder wall thickening or pericholecystic fluid. The visualized portion of the pancreas and right kidney appear unremarkable. IMPRESSION: No acute findings identified. Cholelithiasis. Mild fatty infiltration of the liver. at 1159 Reported and signed by: Javier Barahona MD CC: Parmjit Curiel MD Technologist: ROBERT OSMAN Probe: Trscr Dt/Tm: 04/04/2019 (1159) by:Maricarmen Orig Print D/T: S: 04/04/2019 (5174) BATCH NO: N/A Name: JOANN TOBIN FSED Phys: JUAN DAVID. Parmjit Curiel MD [address] : 1990 Age: 29 Sex: [place] [address] Loc: JONNIES Exam Date: 04/04/2019 Status: REG ER PH: [phone] FAX: PAGE 1 Signed ReportCOMPREHENSIVE METABOLIC [id number] 11:18:00 Test Item Value Reference Range Interpretation Comments SODIUM POC (test code = NAP) mmol/L 138-146 POTASSIUM POC (test code = KP) mmol/L 3.5-4.9 CHLORIDE POC (test code = CLP) mmol/L 98-109 N CO2 POC (test code = CO2P) mmol/L 24-29 GLUCOSE POC (test code = GLUP) MG/DL 70-105 BUN POC (test code = BUNP) mg/dL 8-26 N CREATININE POC (test code = CREATP) mg/dL 0.6-1.3 N GLOMERULAR FILTRATION RATE POC (test 119 71-165 N code = GFRP) TOTAL PROTEIN (test code = PROT) g/dL 6.4-8.1 ALBUMIN (test code = ALB) g/dL 3.3-5.5 N CALCIUM (test code = CA) mg/dL 8.8-10.5 N BILIRUBIN TOTAL (test code = BILT) mg/dL 0.2-1.6 SGOT/AST (test code = AST) IU/L 11-38 N SGPT/ALT (test code = ALT) IU/L 10-47 N ALKALINE PHOSPHATASE (test code = IU/L 42-141 N ALKP) COMPREHENSIVE METABOLIC [id number] 11:18:00 Test Item Value Reference Range Interpretation Comments SODIUM POC (test code = NAP) 132 mmol/L 138-146 L POTASSIUM POC (test code = KP) 3.7 mmol/L 3.5-4.9 N CHLORIDE POC (test code = CLP) 102 mmol/L 98-109 N CO2 POC (test code = CO2P) 27 mmol/L 24-29 N GLUCOSE POC (test code = GLUP) 94 MG/DL 70-105 N BUN POC (test code = BUNP) 9 mg/dL 8-26 N CREATININE POC (test code = 0.6 mg/dL 0.6-1.3 N CREATP) GLOMERULAR FILTRATION RATE POC 119 71-165 N (test code = GFRP) TOTAL PROTEIN (test code = PROT) 7.1 g/dL 6.4-8.1 N ALBUMIN (test code = ALB) 3.3 g/dL 3.3-5.5 N CALCIUM (test code = CA) 9.2 mg/dL 8.8-10.5 N BILIRUBIN TOTAL (test code = BILT) 0.6 mg/dL 0.2-1.6 N SGOT/AST (test code = AST) 22 IU/L 11-38 N SGPT/ALT (test code = ALT) 19 IU/L 10-47 N ALKALINE PHOSPHATASE (test code = 50 IU/L 42-141 N ALKP) CBC W/AUTO [id number] 11:08:00 Test Item Value Reference Range Interpretation Comments WHITE BLOOD CELL 6.4 x10 3/u 4.8-10.8 N (test code = WBC) RED BLOOD CELL (test 4.31 x10 6/uL 4.20-5.40 N code = RBC) HEMOGLOBIN (test code 12.8 g/dL 12.0-16.0 N = HGB) HEMATOCRIT (test code 35.2 % 34.0-47.0 N = HCT) MEAN CELL VOLUME 82 fL 80-99 N (test code = MCV) MEAN CELL HGB (test 29.7 pg 27.0-31.0 N code = MCH) MEAN CELL HGB 36.4 g/dL 33.0-37.0 N CONCENTRATION (test code = MCHC) RED CELL DISTRIBUTION 12.1 % 11.5-14.5 N WIDTH (test code = RDW) PLATELET COUNT (test 267 x10 3/uL 130-400 N code = PLT) MEAN PLATELET VOLUME 8.6 fL 9.4-12.4 L (test code = MPV) NEUTROPHIL % (test 62.6 % 37.0-80.0 N code = NT%) LYMPHOCYTE % (test 32.7 % 10.0-50.0 N code = LY%) MIXED % (test code = 4.7 % 0.0-11.0 N The Mix ed Cell MX%) percent and Mix ed Cell absolute numberinclude monocytes, eosinophils and basophils. NEUTROPHIL # (test 4.0 x10 3/uL 2.0-6.9 N code = NT#) LYMPHOCYTE # (test 2.1 x10 3/uL 0.9-4.1 N code = LY#) MIXED # (test code = 0.3 10e3/mm3 0.2-1.1 N MX#) [id number] 14:51:00 Test Item Value Reference Range Interpretation Comments Hgb (test code = Hgb) 13.0 12.0-16.0 [facility]YRUMFJKW8720-74-66 14:51:00 Test Item Value Reference Range Interpretation Comments Hct (test code = Hct) 36.9 36.0-48.0 [id number] 14:51:00 Test Item Value Reference Range Interpretation Comments Hgb (test code = Hgb) 13.0 12.0-16.0 [facility]MtfvlwyNZUWSREDLE9752-65-62 14:51:00 Test Item Value Reference Range Interpretation Comments Hct (test code = Hct) 36.9 36.0-48.0 [facility] Culture,Comprehensive Test Item Value Reference Range Interpretation Comments Urine Culture,Comprehensive Final report (test code = 630-4) Vaginitis/Vaginosis, DNA Probe Test Item Value Reference Range Interpretation Comments Kendra species (test code = Negative 91322-0) Gardnerella vaginalis (test code = Negative 6410-5) Trichomonas vaginalis (test code = Negative 6568-0) Chlamydia/GC Amplification Urine/Swab Test Item Value Reference Range Interpretation Comments Chlamydia trachomatis, JOHANA (test Negative code = 11386-3) Neisseria gonorrhoeae, JOHANA (test Negative code = 90900-3) TSH Test Item Value Reference Range Interpretation Comments TSH (test code = 76126-3) 0.973 CBC With Differential/Platelet Test Item Value Reference Range Interpretation Comments WBC (test code = 6690-2) 8.8 RBC (test code = 789-8) 4.87 Hemoglobin (test code = 718-7) 14.2 Hematocrit (test code = 4544-3) 40.9 MCV (test code = 787-2) 84 MCH (test code = 785-6) 29.2 MCHC (test code = 786-4) 34.7 RDW (test code = 788-0) 13.2 Platelets (test code = 777-3) 304 Neutrophils (test code = 770-8) 42 Lymphs (test code = 736-9) 49 Monocytes (test code = 5905-5) 5 Eos (test code = 713-8) 4 Basos (test code = 706-2) 0 Immature Cells (test code = UNLOINC) [employer] Neutrophils (Absolute) (test code = 3.7 751-8) Lymphs (Absolute) (test code = 731-0) 4.3 Monocytes(Absolute) (test code = 742-7) 0.4 Eos (Absolute) (test code = 711-2) 0.3 Baso (Absolute) (test code = 704-7) 0.0 Immature Granulocytes (test code = 0 76435-1) Immature Grans (Abs) (test code = 0.0 34904-4) NRBC (test code = 64823-7) [employer] Hematology Comments: (test code = CATERPILLAR MECHANIC 64594-7) Comp. Metabolic Panel (14) Test Item Value Reference Range Interpretation Comments Glucose, Serum (test code = 2345-7) 97 BUN (test code = 3094-0) 11 Creatinine, Serum (test code = 2160-0) 0.55 BUN/Creatinine Ratio (test code = 20 3097-3) Sodium, Serum (test code = 2951-2) 138 Potassium, Serum (test code = 2823-3) 4.0 Chloride, Serum (test code = 2075-0) 97 Carbon Dioxide, Total (test code = 26 8-9) Calcium, Serum (test code = 29463-0) 9.2 Protein, Total, Serum (test code = 7.9 2885-2) Albumin, Serum (test code = 1751-7) 4.8 Globulin, Total (test code = 36167-9) 3.1 A/G Ratio (test code = 1759-0) 1.5 Bilirubin, Total (test code = 1974-2) 0.4 Alkaline Phosphatase, S (test code = 86 6768-6) AST (SGOT) (test code = 1920-8) 29 ALT (SGPT) (test code = 1742-6) 28
[2022-09-28] MEDS ORDERED: BUTORPHANOL 1 MG/ML INJ IV PRN (14:00)
[2022-09-28] MEDS ORDERED: FENTANYL/BUPIVACAINE/NS/PF 200 MCG/100 ML BAG EP PRN (14:00)
[2022-09-28] MEDS ORDERED: MAGNES/ALUMIN/SIMET 30ML UCUP PO PRN (14:00)
[2022-09-28] MEDS ORDERED: FENTANYL CITR 100 MCG/2 ML IV ONE (14:00)
[2022-09-28] MEDS ORDERED: Ringers Lactate 1,000 ML IV PRN (14:00)
[2022-09-28] MEDS ORDERED: PROMETHAZINE INJ 25 MG/ML AMP IM PRN (14:00)
[2022-09-28] MEDS ORDERED: METHYLERGONOVINE 0.2MG/ML AMP IM PRN (14:00)
[2022-09-28] MEDS ORDERED: DIPHENHYDRAMINE 25 MG TAB/CAP PO PRN (14:00)
[2022-09-28] MEDS ORDERED: CARBOPROST TROME 250 MCG/ML IM PRN (14:00)
[2022-09-28] MEDS ORDERED: BUPIVACAINE 0.25% PF 10 ML VIAL IJ PRN (14:00)
[2022-09-28] MEDS: Ringers Lactate 1,000 ML IV SCH (14:17)
[2022-09-28] MEDS: miSOPROStoL 100 MCG TAB VAG PRN (14:29)
[2022-09-28 14:35] VITALS: BMI 40.4
[2022-09-28 15:28] LABS: Absolute Lymphocytes (CBC) 2.2 K/uL (0.7-4.9); Hematocrit 30.6 % (36.0-45.0); Lymphocytes % 27.3 % (15.3-44.8); MCV 78.4 fL (80-100); MPV 7.6 fL (7.6-11.3)
[2022-09-28 15:57] LABS: SARS-CoV-2 Antigen Rapid Res Negative (Negative)
[2022-09-28 16:17] LABS: Hepatitis B surface AG Interp. Nonreactive (Nonreactive)
[2022-09-28 16:39] LABS: Specific Gravity 1.018 (1.005-1.030); Urine Bacteria None Seen /HPF (<20); Urine Bilirubin NEGATIVE (Negative); Urine Blood 3+ (Negative); Urine Clarity Clear (Clear); Urine Color Light-Yellow (Yellow); Urine Glucose NEGATIVE (Negative); Urine Mucus Slight /HPF (None Seen); Urine Protein TRACE (Negative); Urine RBC <5 /HPF (None Seen); Urine Urobilinogen Normal (Normal); Urine pH 6.5 (5.0-7.0)
--- NOTE | 2022-09-28 17:16 | PREOPHP ---
Date of Admission: 09/28/2022 History Of Present Illness: A 32-year-old, 5, para 3, 1 miscarriage, at 39 weeks, today for elective induction. Pros and cons of this thoroughly discussed. The patient was 1 to 1.5 cm in the office, vertex, -2 station, 40% effaced. We will go with Cytotec 25 every 6 hours, if nee ded x3. By tomorrow, she should be more favorable and we will start oxytocin at that point. She is Rh positive, immune to Rubella, negative strep. Family History: Shows 2 grandparents with strokes. Past Medical History: No serious medical illnesses. No history of STDs. Past Surgical History: The patient has had breast augmentation surgery, otherwise no surgery. Medications: She has been taking vitamins. Social History: She does not smoke. Physical Examination: HEENT: Clear. Pupils equal, round, reactive to light and accommodation. Conjunctivae well perfused . No oral, lingual, or buccal lesions. Chest and Lungs: Clear. Heart: Without murmurs, thrills, heaves, or rubs. Breasts: Without masses on previous visits. Abdomen: Term size. Extremities: Clear without edema, cyanosis, or clubbing. Pelvic Exam: As stated. Assessment And Plan: FHTs normal, reactive. We anticipate better progress during vest front presser hour s or tomorrow with a delivery sometime tomorrow anticipated. Full labor talk given. HOLLY/LIBRA Voice ID: [id number]
[2022-09-28] MEDS ORDERED: ZOLPIDEM TARTRATE 5 MG TABLET PO PRN (20:00)
[2022-09-29] MEDS: miSOPROStoL 100 MCG TAB VAG PRN (00:07)
[2022-09-29] MEDS: Ringers Lactate 1,000 ML IV SCH (04:41)
[2022-09-29] MEDS ORDERED: OXYTOCIN/LR 20 UNIT/1,000 ML BAG IV SCH ×2 (05:00→12:00)
--- NOTE | 2022-09-29 08:29 | PN ---
A 32-year-old female. Had Cytotec 25 mcg inserted x2, now on light Pitocin. Baby looks good. Vital signs were all stable. She is now 3 cm, still somewhat posterior, 50% effaced, vertex well applied. Rupture of membranes, normal-appearing amniotic fluid. Anticipate more rapid progress once she get s to 5. The patient is going to wait for her epidural until she gets to 4 cm. If she needs somethin g sooner, she will get Stadol. Full labor talk again discussed. Anticipate delivery sometime later today. HOLLY/LIBRA Voice ID: [id number] Report ID: [id number]
[2022-09-29] MEDS ORDERED: BUPIVACAINE 0.25% PF 10 ML VIAL ONE (09:20)
[2022-09-29] MEDS ORDERED: FENTANYL CITR 100 MCG/2 ML ONE (09:25)
[2022-09-29] MEDS ORDERED: METHYLERGONOVINE 0.2MG/ML AMP IM ONE (09:26)
[2022-09-29] MEDS ORDERED: LIDOCAINE 1% MPF 30 ML VIAL ONE (09:26)
[2022-09-29] MEDS ORDERED: CARBOPROST TROME 250 MCG/ML IM ONE (09:26)
[2022-09-29] MEDS ORDERED: ACETAMINOPHEN 500 MG TAB PO PRN (11:08)
[2022-09-29] MEDS ORDERED: DIPHENHYDRAMINE 25 MG TAB/CAP PO PRN (11:08)
[2022-09-29] MEDS ORDERED: BISACODYL 10 MG RECTAL SUPP RC PRN (11:08)
[2022-09-29] MEDS ORDERED: DOCUSATE NA/SENNA CONC 1 TAB PO PRN (11:08)
[2022-09-29] MEDS ORDERED: Oxycodone HCl/Acetaminophen 1 TAB TAB PO PRN ×2 (11:08)
[2022-09-29] MEDS: METHYLERGONOVINE 0.2 MG TAB PO SCH ×3 (12:06→20:10)
[2022-09-29] MEDS: IBUPROFEN 600 MG TAB PO PRN (20:27)
[2022-09-30] MEDS: METHYLERGONOVINE 0.2 MG TAB PO SCH (00:02)
[2022-09-30 00:27] LABS: RPR (Rapid Plasma Reagin) NON-REACT (NON-REACT)
[2022-09-30] MEDS: IBUPROFEN 600 MG TAB PO PRN (07:53)
[2022-09-30 08:01] VITALS: BP 110/56; TEMP 97.3
[2022-09-30] MEDS ORDERED: Ringers Lactate 2,000 ML IV ONE (11:24)
--- NOTE | 2022-09-30 11:53 | DS ---
Hospital Course: This is a 32-year-old multiparous 5, para 3, AB 1, at 39 weeks, had Cytotec inserted 25 mcg x2. Next morning, Pitocin was started. She went into an active labor, requested an d received epidural anesthesia which gave good effect. Second stage was 20 minutes or less. She spo ntaneously delivered of a 7-pound 11-ounce female. Apgars 9 and 9. Loose nuchal cord x1 very small first-degree mucosal tear requiring 2 stitches 2-0 chromic. Schultze delivery of the placenta, which was inspected, noted to be intact and normal. Less than 350 cc blood loss at time of delivery. Rh positive, immune to Rubella. Negative strep. , had mild hypotonus, was given Methergine l ochia is now completely normal and has been normal overnight. Pulses are in the 50 range. Patient c eveline in with mild anemia. This was discussed with the patient. She needs to continue taking her pren atal vitamins for several months . She has had her Tdap immunization. She has no complain ts or problems this morning. Full dismissal instructions given. She requires no analgesics on dismi ssal. Final Diagnoses: Term intrauterine 39 weeks, Cytotec for cervical ripening, labor inductio n, vaginal delivery, epidural anesthesia, admission maternal anemia, mild. NBC/MODL Voice ID: [id number] Report ID: [id number]
--- NOTE | 2022-10-07 08:05 | OP ---
Surgeon: Nelson Farrell MD Procedure In Detail: A 32-year-old, 5, para 3, AB1, at 39 weeks, for labor induction. Pros and cons of this thoroughly discussed prior to admission. The evening prior to delivery, she had Cyt otec 25 mcg inserted x2. Next morning, the patient was in early labor, Pitocin was started. She req uested and received epidural anesthesia, which gave good effect. Second stage was 20 minutes or less . Delivered spontaneously of a 7-pound 11-ounce female. Apgars 9 and 9. Loose nuchal cord x1. Sma ll first-degree mucosal tear requiring 2 sutures of 2-0 chromic. Schultze delivery of the placenta, which was inspected and noted to be intact and normal. Less than 350 cc blood loss at the time of de livery. Rh positive, immune to Rubella, negative strep. The patient tolerated all procedures well. Final Diagnoses: Term intrauterine , Cytotec for labor, Cytotec for cervical ripening, labo r induction, vaginal delivery. The patient subsequently had mild hypotonus in the period, but this resolved with medication. Epidural anesthesia, maternal anemia on admission noted. NBC/MODL Voice ID: [id number] Report ID: [id number]
--- NOTE | 2022-10-07 08:10 | OP ---
Surgeon: Nelson Farrell MD This note has already been dictated, so we have disregarded this one, but the account number is corre ct on this entry. Procedure In Detail: A 32-year-old, 5, para 3, AB1, at 39 weeks, had Cytotec 25 mcg x2 for c ervical ripening. Next morning, Pitocin was started. The patient went to an active labor. Requeste d and received epidural anesthesia, which gave good effect. Second stage of approximately 20 minutes . Spontaneous delivery of a 7-pound 11-ounce female, Apgars 9 and 9. Loose nuchal cord x1. Small f irst-degree mucosal tear requiring 2 stitches of 2-0 chromic. Schultze delivery of the placenta, whi ch inspected and noted be intact and normal. Less than 350 cc blood loss at the time of delivery. R h positive, immune to Rubella, negative strep. Final Diagnoses: At the time of delivery was intrauterine gestation 39 weeks, Cytotec for cervical r ipening, labor induction, vaginal delivery, epidural anesthesia. NBC/MOD[facility] Voice ID: [id number] Report ID: [id number]
== END 2022-09-30 14:25 | disposition home or self-care (01) | DRG 806 ==
LOC: 2ND-WC 11:10
PROVIDERS: ADMIT Specialist; ATTEND Specialist
PROC: 10E0XZZ Delivery of Products of Conception, External Approach (ICD-10-PCS; principal; 2022-09-29)
PROC: 0HQ9XZZ Repair Perineum Skin, External Approach (ICD-10-PCS; 2022-09-29)
DX: O69.81X0 Labor and delivery complicated by cord around neck, without compression, not applicable or unspecified (principal); O36.0930 Maternal care for other rhesus isoimmunization, third trimester, not applicable or unspecified; Z37.0 Single live birth; O70.0 First degree perineal laceration during delivery; O62.2 Other uterine inertia; Z3A.39 39 weeks gestation of pregnancy; O99.02 Anemia complicating childbirth; Z20.822 Contact with and (suspected) exposure to COVID-19
CPT/HCPCS: 36415; 81001; 85025; 86592; 86901; 87340; 87811; J2001; J2210; J2590; J3010; J7120